=== PATIENT | female | born 1985 | race Hispanic/Latino ===

== ENCOUNTER 2020-03-15 20:44 | Emergency (ER) | payer OTHER | END 2020-03-15 23:30 | disposition home or self-care (01) | LOC: ERS 20:44 | DX: L50.9 Urticaria, unspecified (principal); F41.9 Anxiety disorder, unspecified; F32.9 Major depressive disorder, single episode, unspecified | CPT/HCPCS: 99282 ==

== ENCOUNTER 2021-03-10 15:22 | Emergency (ER) | payer MEDICAID, OTHER | END 2021-03-10 17:00 | disposition home or self-care (01) | LOC: ERS 15:22 | DX: L03.115 Cellulitis of right lower limb (principal) | CPT/HCPCS: 90471 ==

== ENCOUNTER 2022-06-17 13:50 | Outpatient (CLI) | payer OTHER | END 2022-06-17 13:51 | disposition home or self-care (01) | LOC: BICULT 13:50 | PROVIDERS: ATTEND Advanced Practice Midwife | DX: O32.2XX0 Maternal care for transverse and oblique lie, not applicable or unspecified (principal); Z3A.21 21 weeks gestation of pregnancy | CPT/HCPCS: 76805 ==

== ENCOUNTER 2022-12-28 15:10 | Emergency (ER) | payer OTHER ==
[2022-12-28] MEDS ORDERED: methylPREDNISolone Sod Succ/PF 125 MG/2 ML VIAL ONE (15:24)
[2022-12-28] MEDS ORDERED: Famotidine/PF 20 mg/2ml Vial ONE (15:24)
[2022-12-28 15:36] LABS: #Eosinphils 0.1 thou/uL (0.0-0.7); #Monocytes 0.6 thou/uL (0.11-0.59); #Neutrophils 8.4 thou/uL (1.40-6.50); %Basophils 0.1 % (0.0-1.0); %Eosinophils 0.9 % (0.0-10.0); %Lymphocytes 35.6 % (21.0-51.0); %Monocytes 4.3 % (0.0-10.0); %Neutrophils 58.7 % (42.0-75.0); Hematocrit 39.8 % (36.0-47.0); Hemoglobin 13.7 g/dL (12.0-16.0); Mean Corpuscular HGB CONC 34.4 g/dL (32.0-36.0); Mean Corpuscular Hemoglobin 28.5 pg (27.0-31.0); Mean Corpuscular Volume 82.7 fl (78.0-98.0); Mean Platelet Volume 11.9 fL (7.4-10.4); Platelet Count 245 10x3/uL (130-400); RBC Distribution Width 13.6 % (11.5-14.5); Red Blood Cell (RBC) Count 4.81 mill/uL (4.20-5.40); White Blood Cell (WBC) Count 14.3 10x3/uL (4.8-10.8)
[2022-12-28 15:59] LABS: ALT (SGPT) 36 U/L (8-55); AST (SGOT) 22 U/L (5-34); Albumin 4.4 g/dL (3.5-5.0); Alkaline Phosphatase 91 U/L (40-110); Anion Gap 17 mmol/L (10-20); BUN (Urea Nitrogen) 21 mg/dL (7.0-18.7); Bilirubin, Total 0.3 mg/dL (0.2-1.2); Calc. Creatinine Clearance 0 mL/min (70-130); Calcium 10.2 mg/dL (7.8-10.44); Carbon Dioxide 19 mmol/L (22-29); Chloride 106 mmol/L (98-107); Estimated GFR 103; Globulin 4.1 g/dL (2.4-3.5); Glucose 115 mg/dL (70-105); Potassium 3.9 mmol/L (3.5-5.1); Protein, Total 8.5 g/dL (6.0-8.3); Sodium 138 mmol/L (136-145)
== END 2022-12-28 16:35 | disposition home or self-care (01) ==
LOC: ERS 15:10
DX: T78.40XA Allergy, unspecified, initial encounter (principal)
CPT/HCPCS: 80053; 83605; 85025; 96374; 96375; J2930; S0028

== ENCOUNTER 2023-03-26 08:46 | Emergency (ER) | payer OTHER, SELFPAY ==
[2023-03-26] MEDS ORDERED: diphenhydrAMINE 50 MG CAP ONE (09:23)
[2023-03-26] MEDS ORDERED: predniSONE 20 MG TAB ONE (09:24)
[2023-03-26] MEDS ORDERED: Famotidine 20 MG TAB ONE ×2 (09:24→09:26)
== END 2023-03-26 12:09 | disposition home or self-care (01) ==
LOC: ERS 08:46
DX: T39.395A Adverse effect of other nonsteroidal anti-inflammatory drugs [NSAID], initial encounter (principal); L29.9 Pruritus, unspecified
CPT/HCPCS: 99283; J7512